=== PATIENT | female | born 1980 | race Two or more races ===

== ENCOUNTER 2017-02-12 05:02 | Emergency (ER) | payer SELFPAY ==
[2017-02-12] MEDS ORDERED: Sodium Chloride 0.9% 1,000 ML IV ONE (05:14)
[2017-02-12] MEDS ORDERED: Ondansetron 4 MG/2 ML SDV IVPUSH ONE (05:15)
[2017-02-12] MEDS ORDERED: Ketorolac 30 MG/ML SDV IVPUSH ONE (05:15)
[2017-02-12 05:43] LABS: CHLORIDE,CL 105 mmol/L (98-110); SODIUM,NA 140 mmol/L (136-146)
--- NOTE | 2017-02-12 06:46 | EDM.PDOC ---
<Jun Castro - Last Filed: 02/12/17 07:13> ED HPI GENERAL MEDICAL PROBLEM - General Chief Complaint: Flank Pain Stated Complaint: BACK PAIN, SIDE PAIN Time Seen by Provider: 02/12/17 05:20 Source of Information: Reports: Patient History Limitations: Reports: No Limitations - History of Present Illness INITIAL COMMENTS - FREE TEXT/NARRATIVE: HISTORY AND PHYSICAL: History of present illness: []28-year-old female with a past medical history of kidney stones now complaining of sudden onset of left flank pain tonight while sleeping. Patient felt fine last night no urinary symptoms fevers chills sweats or shaking chills. She had no abdominal pain. Normal bowel and bladder habits. She woke the night with severe pain which waxes and wanes. Is not worse with movement but does not improve with position either. She thinks she has a kidney stone. Patient has had a hysterectomy Review of systems: As per history of present illness and below otherwise all systems reviewed and negative. Past medical history: As per history of present illness and as reviewed below otherwise noncontributory. Surgical history: As per history of present illness and as reviewed below otherwise noncontributory. Social history: No reported history of drug or alcohol abuse. Family history: As per history of present illness and as reviewed below otherwise noncontributory. Physical exam: Alert 36-year-old female mildly uncomfortable appearing communicative and appropriate left CVA tenderness nontender abdomen and pelvis normal bowel sounds no mass or megaly remainder exam is benign HEENT: Atraumatic, normocephalic, pupils reactive, negative for conjunctival pallor or scleral icterus, mucous membranes moist, throat clear, neck supple, nontender, trachea midline. Lungs: Clear to auscultation, breath sounds equal bilaterally, chest nontender. Heart: S1S2, regular, negative for clicks, rubs, or JVD. Abdomen: Soft, nondistended, nontender. Negative for masses or hepatosplenomegaly. Negative for costovertebral tenderness on the right. Pelvis: Stable nontender. Genitourinary: Deferred. Rectal: Deferred. Extremities: Atraumatic, negative for cords or calf pain. Neurovascular unremarkable. Neuro: Awake, alert, oriented. Exam nonfocal. Diagnostics: [CT abdomen and pelvis without contrast pending as well as full laboratory workup] Therapeutics: [IV fluids and Toradol given] Impression: [Left flank pain Ureteral colic] Plan: [Signs and symptoms consistent with suspected ureteral colic in a patient with a history of the same. She is hemodynamically stable and well-appearing with benign abdomen and pelvis. Analgesia Toradol and IV fluids administered]. Full workup pending Signed out to Dr. Julian for reevaluation to follow results consultation as needed and disposition Definitive disposition and diagnosis as appropriate pending reevaluation and review of above. Left Flank Pain Score (Numeric/FACES): 10 - Related Data Allergies Allergy/AdvReac Type Severity Reaction Status Date / Time Sulfa (Sulfonamide Allergy Rash Verified 02/12/17 05:18 Antibiotics) Home Meds: Home Meds . [No Known Home Meds] 02/12/17 [History] Past Medical History - Past Health History Medical/Surgical History: Denies Medical/Surgical History Genitourinary History: Reports: Renal Calculus [employer] History: Reports: - Infectious Disease History Infectious Disease History: Reports: Chicken Pox, Shingles - Past Surgical History Female Surgical History: Reports: Hysterectomy, Kidney stone extraction, Tubal Ligation Social & Family History - Family History Family Medical History: Noncontributory - Tobacco Use Smoking Status *Q: Never Smoker Second Hand Smoke Exposure: No - Caffeine Use Caffeine Use: Reports: Coffee Caffeine Use Comment: 3cups/day - Alcohol Use Days Per Week of Alcohol Use: 1 Number of Drinks Per Day: 6 Total Drinks Per Week: 6 - Recreational Drug Use Recreational Drug Use: No Course - Vital Signs Last Recorded V/S: Last Vital Signs Temp 36.4 C 02/12/17 05:18 Pulse 69 02/12/17 07:31 Resp 16 02/12/17 07:31 BP 123/61 02/12/17 07:31 Pulse Ox 95 02/12/17 07:31 - Orders/Labs/Meds Orders: Active Orders 24 hr Category Date Time Status Abdomen Pelvis wo Cont [CT] Stat Exams 02/12/17 05:15 Taken Tamsulosin [Flomax] Med 02/12/17 07:54 Once 0.4 mg PO ONETIME ONE Medication Orders Tamsulosin HCl (Flomax) 0.4 mg PO ONETIME ONE Stop: 02/12/17 07:55 Labs: Laboratory Tests 02/12/17 02/12/17 02/12/17 Range/Units 05:10 05:10 07:02 WBC 9.27 (4.0-11.0) K/uL RBC 4.43 (4.30-5.90) M/uL Hgb 12.3 (12.0-16.0) g/dL Hct 36.9 (36.0-46.0) % MCV 83.3 (80.0-98.0) fL MCH 27.8 (27.0-32.0) pg MCHC 33.3 (31.0-37.0) g/dL RDW Std Deviation 41.5 (28.0-62.0) fl RDW Coeff of Madhavi 14 (11.0-15.0) % Plt Count 334 (150-400) K/uL MPV 9.10 (7.40-12.00) fL Neut % (Auto) 60.2 (48.0-80.0) % Lymph % (Auto) 30.9 (16.0-40.0) % [place] % (Auto) 7.6 (0.0-15.0) % Eos % (Auto) 1.1 (0.0-7.0) % Baso % (Auto) 0.2 (0.0-1.5) % Neut # (Auto) 5.6 (1.4-5.7) K/uL Lymph # (Auto) 2.9 H (0.6-2.4) K/uL [place] # (Auto) 0.7 (0.0-0.8) K/uL Eos # (Auto) 0.1 (0.0-0.7) K/uL Baso # (Auto) 0.0 (0.0-0.1) K/uL Nucleated RBC % 0.0 /100WBC Nucleated RBCs # 0 K/uL Sodium 140 (136-146) mmol/L Potassium 3.5 (3.5-5.1) mmol/L Chloride 105 (98-110) mmol/L Carbon Dioxide 25 (21-31) mmol/L BUN 9 (6.0-23.0) mg/dL Creatinine 0.7 (0.6-1.5) mg/dL Est Cr Clr Drug Dosing 78.27 mL/min Estimated GFR (MDRD) > 60.0 ml/min Glucose 100 (60-110) mg/dL Calcium 9.4 (8.8-10.8) mg/dL Total Bilirubin 0.8 (0.1-1.5) mg/dL AST 23 (5-40) IU/L ALT 25 (8-54) IU/L Alkaline Phosphatase 79 (40-150) Total Protein 8.2 H (6.0-8.0) g/dL Albumin 4.5 (3.5-5.0) g/dL Globulin 3.7 H (2.0-3.5) g/dL Albumin/Globulin Ratio 1.2 L (1.3-2.8) Amylase 37 (10-90) U/L Lipase 28 (7-80) U/L Urine Color YELLOW Urine Appearance CLEAR Urine pH 6.0 (5.0-8.0) Ur Specific [place] 1.010 (1.001-1.035) Urine Protein NEGATIVE (NEGATIVE) mg/dL Urine Glucose (UA) NEGATIVE (NEGATIVE) mg/dL Urine Ketones NEGATIVE (NEGATIVE) mg/dL Urine Occult Blood LARGE H (NEGATIVE) Urine Nitrite NEGATIVE (NEGATIVE) Urine Bilirubin NEGATIVE (NEGATIVE) Urine Urobilinogen 0.2 (<2.0) EU/dL Ur Leukocyte Esterase NEGATIVE (NEGATIVE) Urine RBC 15-20 (0-2/HPF) Urine WBC 0-2 (0-5/HPF) Ur Epithelial Cells FEW (NONE-FEW) Urine Bacteria FEW (NEGATIVE) Meds: Medications Generic Name Dose Route Start Last Admin Trade Name Freq PRN Reason Stop Dose Admin Tamsulosin HCl 0.4 mg 02/12/17 07:54 Flomax PO 02/12/17 07:55 ONETIME ONE Discontinued Medications Generic Name Dose Route Start Last Admin Trade Name Freq PRN Reason Stop Dose Admin Sodium Chloride 1,000 mls @ 999 mls/hr 02/12/17 05:14 02/12/17 05:20 Normal Saline IV 02/12/17 06:14 999 mls/hr .Bolus ONE Administration Ketorolac Tromethamine 30 mg 02/12/17 05:15 02/12/17 05:21 Toradol IVPUSH 02/12/17 05:16 30 mg ONETIME ONE Administration Ondansetron HCl 4 mg 02/12/17 05:15 02/12/17 05:21 Zofran IVPUSH 02/12/17 05:16 4 mg ONETIME ONE Administration Departure - Departure Disposition: Home, Self-Care 01 Clinical Impression: Kidney stone, Ureteric colic - Discharge Information Forms: ED Department Discharge Additional Instructions: The following information is given to patients seen in the emergency department who are being discharged to home. This information is to outline your options for follow-up care. We provide all patients seen in our emergency department with a follow-up referral. The need for follow-up, as well as the timing and circumstances, are variable depending upon the specifics of your emergency department visit. If you don't have a primary care physician on staff, we will provide you with a referral. We always advise you to contact your personal physician following an emergency department visit to inform them of the circumstance of the visit and for follow-up with them and/or the need for any referrals to a consulting specialist. The emergency department will also refer you to a specialist when appropriate. This referral assures that you have the opportunity for followup care with a specialist. All of these measure are taken in an effort to provide you with optimal care, which includes your followup. Under all circumstances we always encourage you to contact your private physician who remains a resource for coordinating your care. When calling for followup care, please make the office aware that this follow-up is from your recent emergency room visit. If for any reason you are refused follow-up, please contact the [facility] emergency department at and ask to speak to the emergency department charge nurse. [facility] [address] [place] [phone] Please post hydration and strain all urine looking for the kidney stone. Please call and follow-up with our urologist, Dr. Rosenthal, on Tuesday and return to ER as needed and as we discussed. Use either of the pain medications you have been given for pain, the medications for nausea and vomiting, and take the Flomax daily. - My Orders Last 24 Hours: My Active Orders 02/12/17 07:54 Tamsulosin [Flomax] 0.4 mg PO ONETIME ONE - Assessment/Plan Last 24 Hours: My Active Orders 02/12/17 07:54 Tamsulosin [Flomax] 0.4 mg PO ONETIME ONE <Alison Julian - Last Filed: 02/12/17 07:58> ED HPI GENERAL MEDICAL PROBLEM - History of Present Illness INITIAL COMMENTS - FREE TEXT/NARRATIVE: This is Dr. Julian dictating an addendum note as I have assumed care on this case as of 7 AM. All labs have been reviewed as well as the urine results. CT scan has just been received at [address] scan does indicate a 6-7 mm stone in the distal ureter but in light of the patient's normal blood work and urine test and she is completely pain free after Toradol she would like to try to pass the stone at home. I've advised her strictly of reasons to return to the ED including intractable pain vomiting and fevers. She is aware that we do not currently have a urologist [employer] but that I will give her information to follow-up with him on Tuesday of next week. She is comfortable with care plan will home and I will give her prescriptions for Flomax Toradol [place] and Zofran as well as urine strainers. The patient will be given 1 dose of Flomax prior to departure. I've also strictly advised her of the need to hydrate and to call Dr. Rosenthal's clinic for follow-up Please add to impression above--- left distal ureteral lithiasis stable, pain- free ED ROS GENERAL - Review of Systems Review Of Systems: ROS reveals no pertinent complaints other than HPI. ED EXAM, GENERAL - Physical Exam Exam: See Below (See dictation) Departure - Departure Time of Disposition: 07:57 Condition: Good
[2017-02-12] MEDS ORDERED: Tamsulosin 0.4 MG Cap.ER PO ONE (07:54)
[2017-02-12 08:21] VITALS: BP 168/76
--- NOTE | 2017-02-14 10:24 | CT ---
EXAM DATE: 02/12/17 PATIENT'S AGE: 36 Patient: SHELLEY DURON Facility: [place], [place] Site . Site : 1980 Study: CT Abdomen/Pelvis [id number]/5/2017 7:31:42 AM Ordering Physician: Doctor Rubio Final Report: INDICATION: left flank pain HISTORY: Left flank pain. COMPARISON: None. TECHNIQUE: CT of the abdomen and pelvis. No intravenous contrast. Coronal/sagittal reconstruction images. FINDINGS: Lung bases: No pleural or pericardial effusion. Heart size is normal. The lung bases demonstrate no acute airspace disease. No basilar pneumothorax. Abdomen/pelvis: No solid hepatic mass. Normal hepatic morphology. There is sparing near the gallbladder fossa. Nonobstructive calculi are present in both intrarenal collecting systems. There is left hydronephrosis and hydroureter. This is secondary to a stone within the pelvis in the left ureter on series 201, image 103. This measures 6-7 mm. No additional urolith is identified. Urinary bladder is normal. No adnexal mass. Colonic diverticulosis. No findings for diverticulitis. No small bowel or colonic obstruction. No abdominal aortic aneurysm. Visceral artery branches are patent. No abdominal or pelvic lymphadenopathy by size criteria. The bone windows demonstrate no lytic or blastic bone lesions. The alignment is preserved. IMPRESSION: 1. Mild left hydronephrosis and hydroureter, secondary to a calculus in the distal left ureter, measuring 6-7 mm on series 201, image 103. 2. This calculus is approximately 4-5 cm from the left UVJ. 3. Additional calculi in both intrarenal collecting systems. 4. Colonic diverticulosis. No associated inflammatory changes. 5. Diffuse hepatic steatosis, with regions of sparing near the gallbladder fossa. Dictated by Jack Tarango MD @ 02/12/2017 7:45:39 AM Dictated by: Jack Tarango MD @ 02/12/2017 07:45:46 (Electronic Signature) Report Signed by Proxy. [facility] CENTERMayelin
== END 2017-02-12 08:14 | disposition home or self-care (01) ==
LOC: MW.ED 05:02
DX: N13.2 Hydronephrosis with renal and ureteral calculous obstruction (principal); Z88.2 Allergy status to sulfonamides; Z90.710 Acquired absence of both cervix and uterus
CPT/HCPCS: 74176; 80053; 81001; 82150; 83690; 85025; 96361; 96374; 96375; 99284; A9270; J1885; J2405; J7040